=== PATIENT | male | born 1970 | race Caucasian/White ===

== ENCOUNTER 2017-01-02 17:03 | Inpatient (IN) | payer MEDICAID ==
[~2017-01-02] VITALS: Ht 177.8 cm; Wt 79.4 kg
--- NOTE | 2017-01-02 17:51 | ED.ADGEN ---
Past History Past Medical History: Anxiety, Bipolar, Depression, Other Smoking: Cigarettes Alcohol Use: Occasionally Drug Use: Amphetamine, Benzodiazepine, Cocaine, Marijuana Adult General Chief Complaint Chief Complaint " .. I ve been thinking about killing my self... I ve had depression for years ever since I was a teenage....I ve been off my meds.... HPI HPI Patient is a 46 year old male who presents with above hx and complaints if suicidal ideation. Pt. states he been using street drugs to moderated his feelings of depression. Pt. admits to marijuana and meth use today. Pt. States he having more problems with his temper.. and wants to hurt people. Pt. reportedly has had several hospitalizations in the past for psychosis exacerbations. Pt. has had past dx. of Bipolar. Pt. reports poor impulse control especially if he is doing meth. Pt. denies hallucinations. Pt. is afraid "people " are after him. Review of Systems Review of Systems Constitutional: Denies fever or chills [] Eyes: Denies change in visual acuity, redness, or eye pain [] HENT: Denies nasal congestion or sore throat [] Respiratory: Denies cough or shortness of breath [] Cardiovascular: No additional information not addressed in HPI [] GI: Denies abdominal pain, nausea, vomiting, bloody stools or diarrhea [] : Denies dysuria or hematuria [] Musculoskeletal: Denies back pain or joint pain [] Integument: Denies rash or skin lesions [] Neurologic: Denies headache, focal weakness or sensory changes [] Endocrine: Denies polyuria or polydipsia [] Family History Family History Pt. refuses to discuss hx of his family. Does have family in [facility]. Current Medications Current Medications Current Medications Medications (Trade) Dose Ordered Sig/Jocelin Start Time Stop Time Status Last Admin Dose Admin Diphenhydramine HCl (Benadryl) 25 mg QID 01/02/17 21:00 Lactated Ringer's (Iv Lactated Ringers) 1,000 ml @ 160 mls/hr [id number] 01/02/17 21:00 Lorazepam (Ativan) 2 mg TID PRN PRN 01/02/17 20:30 Magnesium Hydroxide (Milk Of Magnesia) 2,400 mg HS 01/02/17 21:00 Multivitamins/ Minerals/Folic Acid/Thiamine HCl/ Dextrose/Lactated Ringer's (Infuvite Adult/ Iv D5%-Lr) 1,011.2 ml @ 0 mls/hr 1X ONCE 01/02/17 20:00 01/02/17 20:01 DC 01/02/17 19:47 999 MLS/HR Olanzapine (Zyprexa Im) 10 mg PRN 1X PRN 01/02/17 20:30 Ondansetron HCl 4 mg 4 mg PRN Q4HRS PRN 01/02/17 20:30 01/03/17 20:29 See Nursing - Allergies Allergies Allergies Coded Allergies Type Severity Reaction Last Updated Verified haloperidol Adverse Reaction Intermediate 01/02/17 Yes Physical Exam Physical Exam Constitutional: moderate emotional distress, non-toxic appearance. [] HENT: Normocephalic, atraumatic, bilateral external ears normal, oropharynx moist, no oral exudates, nose normal. [] Eyes: PERRLA, EOMI, conjunctiva normal, no discharge. [] Neck: Normal range of motion, no tenderness, supple, no stridor. [] Cardiovascular:Heart rate regular rhythm, no murmur [] Lungs & Thorax: Bilateral breath sounds equal at apexes on auscultation [] Abdomen: Bowel sounds normal, soft, no tenderness, no masses, no pulsatile masses. [] Skin: Warm, dry, no erythema, no rash. [] Back: No tenderness, no CVA tenderness. [] Extremities: No tenderness, no cyanosis, no clubbing, ROM intact, no edema. [] Abrasion cuts Lt wrist. Neurologic: Alert and oriented X 3, normal motor function, normal sensory function, no focal deficits noted. [] Psychologic: Affect anxious, judgement poor insight, mood depressed. Current Patient Data Vital Signs Vital Signs Date Time Temp Pulse Resp B/P Pulse Ox O2 Delivery O2 Flow Rate FiO2 01/02/17 18:13 98.1 90 18 97 Room Air Lab Results Laboratory Tests Test 01/02/17 18:35 01/02/17 18:40 Urine Collection Type Unknown Urine Color Monisha Urine Clarity Clear Urine pH 5.5 Urine Specific [place] 1.025 Urine Protein Trace (NEG-TRACE) Urine Glucose (UA) Negmg/dL (NEG) Urine Ketones (Stick) 15mg/dL (NEG) Urine Blood Trace (NEG) Urine Nitrite Neg (NEG) Urine Bilirubin Neg (NEG) Urine Urobilinogen Dipstick 0.2mg/dL (0.2 mg/dL) Urine Leukocyte Esterase Neg (NEG) Urine RBC 0/HPF (0-2) Urine WBC Occ/HPF (0-4) Urine Squamous Epithelial Cells Occ/LPF Urine Bacteria 0/HPF (0-FEW) Urine Mucus Slight/LPF Urine Opiates Screen Neg (NEG) Urine Methadone Screen Neg (NEG) Urine Barbiturates Neg (NEG) Urine Phencyclidine Screen Neg (NEG) Urine Amphetamine/Methamphetamine Pos (NEG) Urine Benzodiazepines Screen Neg (NEG) Urine Cocaine Screen Neg (NEG) Urine Cannabinoids Screen Pos (NEG) Urine Ethyl Alcohol Neg (NEG) White Blood Count 11.2x10^3/uL (4.0-11.0) H Red Blood Count 5.05x10^6/uL (4.30-5.70) Hemoglobin 15.3g/dL (13.0-17.5) Hematocrit 46.0% (39.0-53.0) Mean Corpuscular Volume 91fL (79-100) Mean Corpuscular Hemoglobin 30pg (25-35) Mean Corpuscular Hemoglobin Concent 33g/dL (31-37) Red Cell Distribution Width 13.4% (11.5-14.5) Platelet Count 262x10^3/uL (140-400) Neutrophils (%) (Auto) 57% (31-73) Lymphocytes (%) (Auto) 33% (24-48) Monocytes (%) (Auto) 9% (0-9) Eosinophils (%) (Auto) 1% (0-3) Basophils (%) (Auto) 1% (0-3) Neutrophils # (Auto) 6.4x10^3uL (1.8-7.7) Lymphocytes # (Auto) 3.6x10^3/uL (1.0-4.8) Monocytes # (Auto) 1.0x10^3/uL (0.0-1.1) Eosinophils # (Auto) 0.1x10^3/uL (0.0-0.7) Basophils # (Auto) 0.1x10^3/uL (0.0-0.2) Sodium Level 138mmol/L (136-145) Potassium Level 4.1mmol/L (3.5-5.1) Chloride Level 101mmol/L (98-107) Carbon Dioxide Level 28mmol/L (21-32) Anion Gap 9 (6-14) Blood Urea Nitrogen 14mg/dL (8-26) Creatinine 1.1mg/dL (0.7-1.3) Estimated GFR (Cockcroft-Gault) 72.1 Glucose Level 107mg/dL (70-99) H Calcium Level 9.0mg/dL (8.5-10.1) Salicylates Level 4.5mg/dL (2.8-20.0) Salicylate Last Dose Date Unk Salicylate Last Dose Time Unk Acetaminophen Level < 10mcg/mL (10-30) L Acetaminophen Last Dose Date Unk Acetaminophen Last Dose Time Unk Ethyl Alcohol Level < 10mg/dL (0-10) EKG EKG [] Radiology/Procedures Radiology/Procedures [] Course & Med Decision Making Course & Med Decision Making Pertinent Labs and Imaging studies reviewed. (See chart for details) Discussed presentation, testing and tx. plan with Dr. Navarrete. Recommends detoxication and then placement for his Bipolar / Depression / and mood instability. Recommended pt. be started on Zyprexa and Ativan. Discussed presentation, testing and tx. plan with Dr. Bustos. Will admit for detox, and possible placement in AM . Consult to Dr. Da Silva- [] Final Impression Final Impression 1. Depression 2. Thoughts of Suicide[] 3. Polysubstance Abuse 4. Leukocytosis 5. Hx. of Bipolar 6. Hx. Psychosis 7. Hx. of anxiety Problems: Dragon Disclaimer Dragon Disclaimer This electronic medical record was generated, in whole or in part, using a voice recognition dictation system. JOHNIE MINER MD Jan 02, 2017 17:51
[2017-01-02 19:00] LABS: BASO # 0.1 x10^3/uL (0.0-0.2); BASO % 1 % (0-3); EOS # 0.1 x10^3/uL (0.0-0.7); EOS % 1 % (0-3); HEMOGLOBIN 15.3 g/dL (13.0-17.5); LYMPH # 3.6 x10^3/uL (1.0-4.8); LYMPH % 33 % (24-48); MEAN CORPUSCULAR HEMOGLOBIN 30 pg (25-35); MEAN CORPUSCULAR HGB CONC 33 g/dL (31-37); MEAN CORPUSCULAR VOLUME 91 fL (79-100); MONO % 9 % (0-9); NEUT # 6.4 x10^3uL (1.8-7.7); NEUT % 57 % (31-73); PLATELET COUNT 262 x10^3/uL (140-400); RED BLOOD COUNT 5.05 x10^6/uL (4.30-5.70); RED CELL DISTRIBUTION WIDTH 13.4 % (11.5-14.5); WHITE BLOOD COUNT 11.2 x10^3/uL (4.0-11.0)
[2017-01-02 19:08] LABS: CREATININE 1.1 mg/dL (0.7-1.3); GFR 72.1; POTASSIUM 4.1 mmol/L (3.5-5.1)
[2017-01-02 19:13] LABS: SALIC 4.5 mg/dL (2.8-20.0)
[2017-01-02 19:14] LABS: AMPHETAMINE/METHAMPHETAMINE POS (NEG); BARBITURATES NEG (NEG); BENZODIAZEPINES NEG (NEG); CANNABINOIDS POS (NEG); COCAINE NEG (NEG); METHADONE NEG (NEG); OPIATES NEG (NEG); PHENCYCLIDINE NEG (NEG)
[2017-01-02 19:14] LABS: ACETAMIN < 10 mcg/mL (10-30); ETHANOL < 10 mg/dL (0-10)
[2017-01-02 19:22] LABS: BACTERIA,URINE 0 /HPF (0-FEW); BILIRUBIN,URINE NEG (NEG); CLARITY,URINE CLEAR; COLOR,URINE AMBER; GLUCOSE,URINE NEG (NEG); NITRITE,URINE NEG (NEG); RBC,URINE 0 /HPF (0-2); SQUAMOUS EPITHELIAL CELL,UR OCC /LPF; UROBILINOGEN,URINE 0.2 mg/dL (0.2 mg/dL); WBC,URINE OCC /HPF (0-4)
[2017-01-02] MEDS ORDERED: DIPHENHYDRAMINE 50 MG/ML VIAL IVP ONE (19:45)
[2017-01-02] MEDS ORDERED: LORAZEPAM 2 MG/ML VIAL IV ONE (19:45)
[2017-01-02] MEDS ORDERED: OLANZapine IM 10 MG VIAL. IM ONE (19:45)
[2017-01-02] MEDS ORDERED: MVI, ADULT NO.4 WITH VIT K 10 ML, FOLIC ACID 1 MG, THIAMINE 100 MG in IV DEXTROSE 5%-LA... IV ONE ×4 (20:00)
--- NOTE | 2017-01-02 20:16 | EKG ---
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
[2017-01-02] MEDS ORDERED: ONDANSETRON PF 4 MG/2 ML VIAL. IV PRN (20:30)
[2017-01-02] MEDS ORDERED: LORAZEPAM 2 MG/ML VIAL IM PRN (20:30)
[2017-01-02] MEDS ORDERED: OLANZapine IM 10 MG VIAL. IM PRN (20:30)
[2017-01-02] MEDS ORDERED: LORAZEPAM 1 MG TABLET. PO PRN (20:30)
[2017-01-02] MEDS ORDERED: MAGNESIUM HYDROXIDE 2,400 MG/30 ML ORAL.SUSP. PO SCH (21:00)
[2017-01-02] MEDS ORDERED: IV RINGERS SOLUTION,LACTATED 1,000 ML IV SCH (21:00)
[2017-01-02 21:45] VITALS: BP 114/64
[2017-01-02] MEDS: DIPHENHYDRAMINE HCL 25 MG CAPSULE PO SCH (22:00)
[2017-01-03 03:00] VITALS: BP 127/87
[2017-01-03] MEDS ORDERED: IPRATRPIUM/ALBUTEROL 0.5/2.5MG 3 ML NEBU. ONE (05:24)
[2017-01-03] MEDS: IPRATRPIUM/ALBUTEROL 0.5/2.5MG 3 ML NEBU. NEB SCH ×3 (05:25→16:52)
[2017-01-03 06:13] LABS: BASO # 0.1 x10^3/uL (0.0-0.2); BASO % 1 % (0-3); EOS # 0.1 x10^3/uL (0.0-0.7); EOS % 2 % (0-3); HEMATOCRIT 44.4 % (39.0-53.0); LYMPH # 3.5 x10^3/uL (1.0-4.8); LYMPH % 51 % (24-48); MEAN CORPUSCULAR HEMOGLOBIN 31 pg (25-35); MEAN CORPUSCULAR HGB CONC 34 g/dL (31-37); MEAN CORPUSCULAR VOLUME 91 fL (79-100); MONO # 0.7 x10^3/uL (0.0-1.1); MONO % 10 % (0-9); NEUT # 2.5 x10^3uL (1.8-7.7); NEUT % 36 % (31-73); PLATELET COUNT 243 x10^3/uL (140-400); RED BLOOD COUNT 4.88 x10^6/uL (4.30-5.70); RED CELL DISTRIBUTION WIDTH 13.5 % (11.5-14.5); WHITE BLOOD COUNT 6.8 x10^3/uL (4.0-11.0)
[2017-01-03 06:24] VITALS: BP 111/67
[2017-01-03 06:27] LABS: ALBUMIN 3.6 g/dL (3.4-5.0); CALCIUM 8.9 mg/dL (8.5-10.1); GFR 80.4; POTASSIUM 4.2 mmol/L (3.5-5.1); TOTAL BILIRUBIN 0.4 mg/dL (0.2-1.0); TOTAL PROTEIN 7.1 g/dL (6.4-8.2)
[2017-01-03] MEDS ORDERED: [UNRECOGNIZED DRUG - REMARK] IV SCH ×4 (09:00)
[2017-01-03] MEDS ORDERED: OLANZAPINE 5 MG TABLET. PO SCH (09:00)
[2017-01-03] MEDS: DIPHENHYDRAMINE HCL 25 MG CAPSULE PO SCH ×2 (09:00→13:00)
--- NOTE | 2017-01-03 09:06 | ACF ---
Admit Criteria Forms Admit Criteria Forms Admit Criteria Forms PSYCHIATRIC DISORDERS Clinical Indications for Inpatient Care (Place 'X' for any and all applicable criteria): Ongoing inpatient care may be needed for ANY ONE of the following(1)(2)(3)(4)(6) (7)(8): [X]I. Danger to self or others not manageable at lower level of care. [ ]II. Grave disability (eg, inability to perform self care necessary at lower level of care) [ ]III. Agitation or inappropriate behavior interfering with care for primary condition (eg, attempting to discontinue lines or drains prematurely, unable to cooperate with respiratory care) [ ]IV. Severe disability or disorder indicated by ALL of the following: [ ]a) Severe behavioral health disorder-related symptoms or condition indicated by ANY ONE of the following: [ ]i) Severe problem with cognition, memory, judgment, or impulse control [ ]ii) Severe clinical manifestations (eg, hallucinations, delusions, other acute psychotic symptoms, ross, extreme agitation or anxiety) [ ]b) Patient management at lower level of care is not feasible until acute intervention or modification is initiated. Extended stay beyond goal length of stay for the primary condition may be indicated when ANY ONE of the following is present: (1)(2)(3)(4): [ ]a) Patient is a danger to self or others and not manageable at lower level of care. [ ]b) Behavior crisis management, including physical or chemical restraints, is required and is not available at a lower level of care. [ ]c) Behavioral symptoms (e.g., agitation, somnolence, inappropriate behavior) are present, and are not manageable at a lower level of care. [ ]d) Patient cannot understand follow-up treatment and crisis plan. [ ]e) Provider and supports are not sufficiently available at lower level of care. [ ]f) Patient cannot participate (e.g., verify absence of plan for harm) and is in needed of monitoring. The original [email or web address] content created by [facility] has been revised. The portions of the content which have been revised are identified through the use of italic text or in bold, and [facility] has neither reviewed nor approved the modified material. All other unmodified content is copyright [facility]. Please see references footnoted in the original [facility] edition 2016 PHILLIP MCBRIDE Jan 03, 2017 09:06
[2017-01-03 11:00] VITALS: BP 120/55
--- NOTE | 2017-01-03 13:33 | HP ---
ADMIT DATE: 01/03/2017 REASON FOR ADMISSION: Suicidal and homicidal. HISTORY OF PRESENT ILLNESS: This is a 46-year-old male who was seen in the Emergency Room complaining of suicidal ideation. The patient admits to using street drugs, although he said he did not use meth. He used meth 2 weeks ago; however, the patient was admitted to the Emergency Room doctor he used meth and marijuana yesterday. The patient admits to having temper problems and was asking for some help. PAST MEDICAL HISTORY: The patient has bipolar disorder and depression. MEDICATIONS: None. The patient states regarding his medications, that he gets put on meds, but then cannot afford to buy them or does not buy them. ALLERGIES: HALOPERIDOL. SOCIAL HISTORY: The patient is currently homeless. The patient states he alternates between woman and bynum men that he is friends with. They act off each other. 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 He does smoke cigarettes. Occasional alcohol use. Drug use: Has a drug history of amphetamine, benzodiazepine, cocaine and marijuana use. The patient lived in [place]. Mother when he was 10, was apparently very close to an uncle, that has no family in this general area. REVIEW OF SYSTEMS: Negative with the exception of psychological. The patient states that people are out to get him; that he hears things from the television, that he does have visual and auditory hallucinations. We will expand on that in the mental state. PHYSICAL EXAMINATION: VITAL SIGNS: Blood pressure 120/55, temperature 97.5, pulse 88, respirations 18, pulse ox 98% on room air. GENERAL: The patient slept most of the morning and awakened around 11 a.m. He was calm and cooperative. HEENT: Pupils were equal, round, react to light. Extraocular muscles were intact. His hearing is normal. His nose was patent. His throat was clear. NECK: Supple. LUNGS: Clear to auscultation. CARDIOVASCULAR: Regular rhythm and rate. ABDOMEN: Soft, nontender. EXTREMITIES: Without edema. He has a scar from an ankle fracture on the mid right ankle. This is old. NEUROLOGIC: He has very fine hand tremor. MENTAL STATUS: The patient was quite animated about several things, but basically states that he is under surveillance. [employer] is under surveillance off him. He has people talking to him through the television. He has conflicts between God and the devil; that goes really low and then goes really high. He got a little bit animated in describing these things. He also states that he sees things and that people tell him what to do. He also got kind of animated in describing the relationship between the bynum men and the women and their need to have sex with him. His thought processes are somewhat psychotic, animated. No violence observed. LABORATORY DATA: Drug screen positive for methamphetamine and cannabinoids. Chemistry profile is negative. CBC is normal, slightly elevated white count, but came back to normal with IV fluids. ASSESSMENT: 1. History of mood instability with psychosis, per psychiatrist. 2. History of bipolar disorder. 3. Tobacco use. 4. Methamphetamine use. 5. Cannabinoid use. 6. History of multiple other drug uses. 7. Homeless state. PLAN: Psychiatric tele evaluation recommends inpatient psychiatry for safety and management and place in a legal hold. [facility] come over on emergent basis and will do their best to facilitate inpatient hospitalization for him. KEENAN COOPER DO DR: MINESH/silvia JOB#: [id number] / [id number]
[2017-01-03 15:06] VITALS: BP 99/58
--- NOTE | 2017-01-04 17:59 | DS ---
DATE OF DISCHARGE: 01/03/2017 DISPOSITION: To Psychiatric facility in . Please see H and P, which was done earlier today, but basically because of methamphetamine abuse, psychosis and suicidal or homicidal ideation needs hospitalization. KEENAN COOPER DO DR: MINESH/silvia JOB#: [id number] / [id number]
== END 2017-01-03 17:30 | disposition short-term general hospital (02) | DRG 885 ==
LOC: EEVIPCON 17:03 → ER 17:03 → ICU 21:37
PROVIDERS: ADMIT Family Medicine; ATTEND Family Medicine
DX: F29 Unspecified psychosis not due to a substance or known physiological condition (principal); R45.851 Suicidal ideations; F32.9 Major depressive disorder, single episode, unspecified; F12.90 Cannabis use, unspecified, uncomplicated; F15.90 Other stimulant use, unspecified, uncomplicated; D72.829 Elevated white blood cell count, unspecified; F41.9 Anxiety disorder, unspecified; F17.210 Nicotine dependence, cigarettes, uncomplicated; F31.9 Bipolar disorder, unspecified; Z59.0 Homelessness; Z88.8 Allergy status to other drugs, medicaments and biological substances
CPT/HCPCS: 36415; 80048; 80053; 81001; 85027; 93005; 94640; 96372; 96374; 96375; G0480; G0481; G6038; J1200; J2060; J3490; J7120; J7620; 80196; 99285-25

== ENCOUNTER 2019-04-28 17:03 | Emergency (ER) | payer MEDICAID ==
[~2019-04-28] VITALS: Ht 177.8 cm; Wt 84.8 kg
[2019-04-28] MEDS ORDERED: IV NORMAL SALINE 1,000ML 1,000 ML IV ONE (17:45)
[2019-04-28] MEDS ORDERED: cefTRIAXone IM 250 MG VIAL IM ONE (17:45)
[2019-04-28] MEDS ORDERED: AZITHROMYCIN 250 MG TABLET. PO ONE (17:45)
[2019-04-28 17:53] LABS: BILIRUBIN,URINE NEG (NEG); CLARITY,URINE HAZY; COLOR,URINE YELLOW; GLUCOSE,URINE NEG (NEG); NITRITE,URINE NEG (NEG); UROBILINOGEN,URINE 0.2 mg/dL (0.2 mg/dL)
[2019-04-28 17:54] LABS: BACTERIA,URINE 0 /HPF (0-FEW); RBC,URINE 0 /HPF (0-2); SQUAMOUS EPITHELIAL CELL,UR OCC /LPF; WBC,URINE 0 /HPF (0-4)
--- NOTE | 2019-04-28 18:18 | RAD ---
Exam: CT abdomen and pelvis without contrast INDICATION: Left flank pain TECHNIQUE: Sequential axial images through the abdomen and pelvis obtained without IV contrast. Sagittal and coronal reformatted images were reconstructed from the axial data and reviewed. Comparisons: None FINDINGS: Heart size is normal. No pericardial effusion. Visualized lung bases are clear. No pleural effusion. Evaluation of the solid organs is limited secondary to noncontrast technique. Liver, spleen, pancreas, gallbladder and adrenals are unremarkable. No perinephric inflammation or hydronephrosis. No renal or ureteral calculi. Bladder is distended and appears normal. Prostate is not enlarged. Mild diverticulosis without evidence of acute diverticulitis. The remainder the large and small bowel are unremarkable. Appendix is normal. No free intraabdominal air or fluid. No obstruction. Abdominal aorta has a normal course and caliber. No enlarged intra-abdominal lymph nodes are identified. No suspicious osseous lesions or acute fractures. IMPRESSION: 1. No acute process identified within the abdomen or pelvis. 2. No evidence for obstructive uropathy. 3. Mild diverticulosis Exposure: One or more of the following in the visualized dose reduction techniques were utilized for this examination: 1. Automated exposure control 2. Adjustment of the MA and/or KV according to patient size 3. Use of iterative of reconstructive technique Electronically signed by: Ceasar Jansen MD (04/28/2019 6:16 PM) [facility]
--- NOTE | 2019-04-28 18:23 | PHYS DOC ---
Past History Past Medical History: Anxiety, Bipolar, Depression, Other (RONN TINAJERO DO) Past Surgical History: Other (RONN TINAJERO DO) Smoking: Cigarettes Alcohol Use: Occasionally Drug Use: Amphetamine, Benzodiazepine, Cocaine, Marijuana (RONN TINAJERO DO) Adult General Chief Complaint Chief Complaint: SEXUALLY TRANSMITTED DISEASE HPI HPI 49-year-old male presents with 2 week history of burning with urination and intermittent penile discharge with concern for possible STD. Patient reports he slept with a new partner prior to episode. Patient now with several day history of left upper quadrant pain with radiation to his flank. Denies any nausea or vomiting. Denies fever or chills. Denies known trauma. Denies rash. Patient also denies testicular pain. (RONN TINAJERO DO) Review of Systems Review of Systems Constitutional: Denies fever or chills Eyes: Denies redness or eye pain HENT: Denies nasal congestion or sore throat Respiratory: Denies cough or shortness of breath Cardiovascular: Denies chest pain or palpitations GI: Reports abdominal pain; denies nausea or vomiting : Reports dysuria and penile discharge; denies hematuria Musculoskeletal: Denies back pain or joint pain; reports left flank pain Integument: Denies rash or skin lesions Neurologic: Denies headache, focal weakness or sensory changes Complete systems were reviewed and found to be within normal limits, except as documented in this note. (RONN TINAJERO DO) Current Medications Current Medications Current Medications Medications (Trade) Dose Ordered Sig/Jocelin Start Time Stop Time Status Last Admin Dose Admin Azithromycin (Zithromax) 1,000 mg 1X ONCE 04/28/19 17:45 04/28/19 17:46 DC Ceftriaxone Sodium (Rocephin Im) 250 mg 1X ONCE 04/28/19 17:45 04/28/19 17:46 DC Sodium Chloride 1,000 ml @ 1,000 mls/hr 1X ONCE 04/28/19 17:45 04/28/19 18:44 (RONN TINAJERO DO) Allergies Allergies Allergies Coded Allergies Type Severity Reaction Last Updated Verified haloperidol Adverse Reaction Intermediate 01/02/17 Yes (RONN TINAJERO DO) Physical Exam Physical Exam Constitutional: Well developed, well nourished, no acute distress, non-toxic appearance HENT: Normocephalic, atraumatic, oropharynx moist Eyes: Conjunctiva normal, no discharge Neck: Normal range of motion, no tenderness, supple Cardiovascular: Heart rate normal, regular rhythm Lungs & Thorax: Bilateral breath sounds clear to auscultation, no wheezing Abdomen: Soft, left upper quadrant abdominal pain to palpation : External genitalia normal, no penile discharge noted, no testicular tenderness to palpation, cremasteric reflex intact Skin: Warm, dry, no erythema, no rash Back: No tenderness, left CVA tenderness Extremities: No tenderness, ROM intact, no edema Neurologic: Alert and oriented X 3, no focal deficits noted Psychologic: Affect normal, judgement normal, mood normal (RONN TINAJERO DO) Current Patient Data Vital Signs Vital Signs Date Time Temp Pulse Resp B/P (MAP) Pulse Ox O2 Delivery O2 Flow Rate FiO2 04/28/19 17:23 98.2 94 16 98 Room Air Lab Results Laboratory Tests Test 04/28/19 17:35 Urine Collection Type Unknown Urine Color Yellow Urine Clarity Hazy Urine pH 5.5 Urine Specific [place] 1.010 Urine Protein Neg (NEG-TRACE) Urine Glucose (UA) Neg mg/dL (NEG) Urine Ketones (Stick) Neg mg/dL (NEG) Urine Blood Trace (NEG) Urine Nitrite Neg (NEG) Urine Bilirubin Neg (NEG) Urine Urobilinogen Dipstick 0.2 mg/dL (0.2 mg/dL) Urine Leukocyte Esterase Neg (NEG) Urine RBC 0 /HPF (0-2) Urine WBC 0 /HPF (0-4) Urine Squamous Epithelial Cells Occ /LPF Urine Bacteria 0 /HPF (0-FEW) (RONN TINAJERO DO) EKG EKG [] (RONN TINAJERO DO) Radiology/Procedures Radiology/Procedures [] (RONN TINAJERO DO) Radiology/Procedures [address] [address] IMAGING REPORT Signed PATIENT: WHITNEY PATTERSON ACCOUNT: [id number] : 1970 LOCATION: ER AGE: 49 SEX: M EXAM STATUS: REG ER ORD. PHYSICIAN: RONN TINAJERO DO REASON: left flank pain/LUQ pain PROCEDURE: CT ABDOMEN PELVIS WO CONTRAST Exam: CT abdomen and pelvis without contrast INDICATION: Left flank pain TECHNIQUE: Sequential axial images through the abdomen and pelvis obtained without IV contrast. Sagittal and coronal reformatted images were reconstructed from the axial data and reviewed. Comparisons: None FINDINGS: Heart size is normal. No pericardial effusion. Visualized lung bases are clear. No pleural effusion. Evaluation of the solid organs is limited secondary to noncontrast technique. Liver, spleen, pancreas, gallbladder and adrenals are unremarkable. No perinephric inflammation or hydronephrosis. No renal or ureteral calculi. Bladder is distended and appears normal. Prostate is not enlarged. Mild diverticulosis without evidence of acute diverticulitis. The remainder the large and small bowel are unremarkable. Appendix is normal. No free intraabdominal air or fluid. No obstruction. Abdominal aorta has a normal course and caliber. No enlarged intra-abdominal lymph nodes are identified. No suspicious osseous lesions or acute fractures. IMPRESSION: 1. No acute process identified within the abdomen or pelvis. 2. No evidence for obstructive uropathy. 3. Mild diverticulosis Exposure: One or more of the following in the visualized dose reduction techniques were utilized for this examination: 1. Automated exposure control 2. Adjustment of the MA and/or KV according to patient size 3. Use of iterative of reconstructive technique Electronically signed by: Ceasar Jansen MD (04/28/2019 6:16 PM) [facility] (JOHNIE NELSON MD) Course & Med Decision Making Course & Med Decision Making Patient presents with concern for possible STD along with left upper quadrant/left flank pain. Pain addressed. Labs obtained and pending at this time. CT abdomen/pelvis also pending. EKG pending. Urine Chlamydia/gonorrhea cultures pending. Empiric antibiotics initiated. Sign out given to Dr. Nelson for further evaluation and final disposition. Disc ussed current findings and plan with patient, who acknowledges understanding and agreement. (RONN TINAJERO DO) Course & Med Decision Making Pt. to follow up pending cultures. Take doxycycline 100 bid. Safe sex. Return if any concerns. (JOHNIE NELSON MD) Dragon Disclaimer Dragon Disclaimer This electronic medical record was generated, in whole or in part, using a voice recognition dictation system. (RONN TINAJERO DO) Departure Departure: Impression: Primary Impression: Abdominal pain Additional Impression: Concern about STD in male without diagnosis Referrals: PCP,NO (PCP) Scripts Doxycycline Hyclate (DOXYCYCLINE HYCLATE) 100 Mg Tablet. 100 MG PO BID for STD coverage for 14 Days, #28 TAB Prov: JOHNIE NELSON MD 04/28/19 Discharge Summary Visit Information Final Diagnosis Problems Medical Problems: (1) Abdominal pain Status: Acute (2) Concern about STD in male without diagnosis Status: Acute (JOHNIE NELSON MD) Brief Hospital Course Allergies Allergies Coded Allergies Type Severity Reaction Last Updated Verified haloperidol Adverse Reaction Intermediate 01/02/17 Yes Vital Signs Vital Signs Date Time Temp Pulse Resp B/P (MAP) Pulse Ox O2 Delivery O2 Flow Rate FiO2 04/28/19 19:11 89 18 135/76 (95) 98 Room Air 04/28/19 17:23 98.2 Lab Results Laboratory Tests Test 04/28/19 17:35 04/28/19 18:19 Urine Collection Type Unknown Urine Color Yellow Urine Clarity Hazy Urine pH 5.5 Urine Specific [place] 1.010 Urine Protein Neg (NEG-TRACE) Urine Glucose (UA) Neg mg/dL (NEG) Urine Ketones (Stick) Neg mg/dL (NEG) Urine Blood Trace (NEG) Urine Nitrite Neg (NEG) Urine Bilirubin Neg (NEG) Urine Urobilinogen Dipstick 0.2 mg/dL (0.2 mg/dL) Urine Leukocyte Esterase Neg (NEG) Urine RBC 0 /HPF (0-2) Urine WBC 0 /HPF (0-4) Urine Squamous Epithelial Cells Occ /LPF Urine Bacteria 0 /HPF (0-FEW) White Blood Count 8.8 x10^3/uL (4.0-11.0) Red Blood Count 4.66 x10^6/uL (4.30-5.70) Hemoglobin 14.5 g/dL (13.0-17.5) Hematocrit 43.3 % (39.0-53.0) Mean Corpuscular Volume 93 fL (79-100) Mean Corpuscular Hemoglobin 31 pg (25-35) Mean Corpuscular Hemoglobin Concent 33 g/dL (31-37) Red Cell Distribution Width 13.8 % (11.5-14.5) Platelet Count 276 x10^3/uL (140-400) Neutrophils (%) (Auto) 45 % (31-73) Lymphocytes (%) (Auto) 45 % (24-48) Monocytes (%) (Auto) 8 % (0-9) Eosinophils (%) (Auto) 2 % (0-3) Basophils (%) (Auto) 1 % (0-3) Neutrophils # (Auto) 3.9 x10^3uL (1.8-7.7) Lymphocytes # (Auto) 3.9 x10^3/uL (1.0-4.8) Monocytes # (Auto) 0.7 x10^3/uL (0.0-1.1) Eosinophils # (Auto) 0.2 x10^3/uL (0.0-0.7) Basophils # (Auto) 0.1 x10^3/uL (0.0-0.2) Sodium Level 142 mmol/L (136-145) Potassium Level 4.4 mmol/L (3.5-5.1) Chloride Level 103 mmol/L (98-107) Carbon Dioxide Level 30 mmol/L (21-32) Anion Gap 9 (6-14) Blood Urea Nitrogen 12 mg/dL (8-26) Creatinine 1.1 mg/dL (0.7-1.3) Estimated GFR (Cockcroft-Gault) 71.1 BUN/Creatinine Ratio 11 (6-20) Glucose Level 97 mg/dL (70-99) Calcium Level 9.4 mg/dL (8.5-10.1) Magnesium Level 2.3 mg/dL (1.8-2.4) Total Bilirubin 0.1 mg/dL (0.2-1.0) Aspartate Amino Transf (AST/SGOT) 16 U/L (15-37) Alanine Aminotransferase (ALT/SGPT) 29 U/L (16-63) Alkaline Phosphatase 74 U/L (46-116) Creatine Kinase 66 U/L (39-308) Creatine Kinase MB (Mass) 1.1 ng/mL (0.0-3.6) Creatine Kinase MB Relative Index 1.7 % (0-4) Troponin I Quantitative < 0.017 ng/mL (0-0.055) Total Protein 6.8 g/dL (6.4-8.2) Albumin 3.6 g/dL (3.4-5.0) Albumin/Globulin Ratio 1.1 (1.0-1.7) Lipase 154 U/L (73-393) Brief Hospital Course Mr. Patterson is a 49 old male who presented with concerns for STD. (JOHNIE NELSON MD) Discharge Information Condition at Discharge: Stable Disposition/Orders: D/C to Home Dischare Medications Current Medications Sodium Chloride 1,000 ml @ 1,000 mls/hr 1X ONCE IV Last administered on 04/28/19at 18:42; Start 04/28/19 at 17:45; Stop 04/28/19 at 18:44; Status DC Ceftriaxone Sodium (Rocephin Im) 250 mg 1X ONCE IM Last administered on 04/28/19at 18:42; Start 04/28/19 at 17:45; Stop 04/28/19 at 17:46; Status DC Azithromycin (Zithromax) 1,000 mg 1X ONCE PO Last administered on 04/28/19at 18:42; Start 04/28/19 at 17:45; Stop 04/28/19 at 17:46; Status DC Active Scripts Active Doxycycline Hyclate 100 Mg Tablet.dr 100 Mg PO BID 14 Days (JOHNIE NELSON MD) Dragon Disclaimer This chart was dictated in whole or in part using Voice Recognition software in a busy, high-work load, and often noisy Emergency Department environment. It may contain unintended and wholly unrecognized errors or omissions. (JOHNIE NELSON MD) Problem Qualifiers Primary Impression: Abdominal pain Abdominal location: left upper quadrant Qualified Codes: R10.12 - Left upper quadrant pain RONN TINAJERO DO Apr 28, 2019 18:23 JOHNIE NELSON MD Apr 28, 2019 18:58
[2019-04-28 18:53] LABS: BASO # 0.1 x10^3/uL (0.0-0.2); BASO % 1 % (0-3); EOS # 0.2 x10^3/uL (0.0-0.7); EOS % 2 % (0-3); HEMATOCRIT 43.3 % (39.0-53.0); HEMOGLOBIN 14.5 g/dL (13.0-17.5); LYMPH # 3.9 x10^3/uL (1.0-4.8); LYMPH % 45 % (24-48); MEAN CORPUSCULAR HEMOGLOBIN 31 pg (25-35); MEAN CORPUSCULAR HGB CONC 33 g/dL (31-37); MEAN CORPUSCULAR VOLUME 93 fL (79-100); MONO # 0.7 x10^3/uL (0.0-1.1); MONO % 8 % (0-9); NEUT # 3.9 x10^3uL (1.8-7.7); NEUT % 45 % (31-73); PLATELET COUNT 276 x10^3/uL (140-400); RED BLOOD COUNT 4.66 x10^6/uL (4.30-5.70); RED CELL DISTRIBUTION WIDTH 13.8 % (11.5-14.5); WHITE BLOOD COUNT 8.8 x10^3/uL (4.0-11.0)
[2019-04-28] MEDS ORDERED: DOXY100T9 PO (18:59)
[2019-04-28 19:11] VITALS: BP 135/76
[2019-04-28 19:19] LABS: ALBUMIN 3.6 g/dL (3.4-5.0); ALBUMIN/GLOBULIN RATIO 1.1 (1.0-1.7); CALCIUM 9.4 mg/dL (8.5-10.1); CREATININE 1.1 mg/dL (0.7-1.3); GFR 71.1; MAGNESIUM 2.3 mg/dL (1.8-2.4); POTASSIUM 4.4 mmol/L (3.5-5.1); TOTAL BILIRUBIN 0.1 mg/dL (0.2-1.0); TOTAL PROTEIN 6.8 g/dL (6.4-8.2)
== END 2019-04-28 19:12 | disposition home or self-care (01) ==
LOC: ER 17:03
DX: Z20.2 Contact with and (suspected) exposure to infections with a predominantly sexual mode of transmission (principal); R10.12 Left upper quadrant pain; R30.0 Dysuria; F17.210 Nicotine dependence, cigarettes, uncomplicated; Z88.8 Allergy status to other drugs, medicaments and biological substances
CPT/HCPCS: 36415; 74176; 80053; 81001; 82553; 83690; 83735; 84484; 85025; 87491; 87591; 96372; 99285; J0456; J0696; J7030

== ENCOUNTER 2021-01-22 00:52 | Emergency (ER) | payer SELFPAY ==
[~2021-01-22] VITALS: Ht 177.8 cm; Wt 86.0 kg
[2021-01-22 00:52] VITALS: BP 125/75
[~2021-01-22 00:52] MED LIST: DOXY-96 PO
[2021-01-22] MEDS ORDERED: CLOT15CR23 TP (01:31)
[2021-01-22] MEDS ORDERED: CEPH500T PO (01:31)
== END 2021-01-22 01:50 | disposition home or self-care (01) ==
LOC: ER 00:52
DX: R21 Rash and other nonspecific skin eruption (principal); F17.210 Nicotine dependence, cigarettes, uncomplicated; F41.9 Anxiety disorder, unspecified; F31.9 Bipolar disorder, unspecified; Z88.8 Allergy status to other drugs, medicaments and biological substances
CPT/HCPCS: 99283